=== PATIENT | female | born 1970 | race Hispanic/Latino ===

== ENCOUNTER → 2020-04-05 | Day surgery (SDC) | payer OTHER ==
--- NOTE | 2020-04-04 12:55 | Pre Op History & Physical ---
CHIEF COMPLAINT: Right thyroid dominant nodule. HISTORY OF PRESENT ILLNESS: This 49-year-old female was noted to have a right thyroid dominant nodules. She has been followed for over a year and a half. The dominant nodule on the right side was noted on ultrasound, it was increasing in size. The patient also has smaller nodules on the left side which has decreased in size. The size of the dominant nodule was over 4.4 cm. The patient denies any dysphagia, odynophagia, or shortness of breath. She has no radiation to the head and neck area. The patient has no family history of thyroid problem. The patient after discussion of treatment options, has declined to have needle aspiration of the nodule in lieu of having the right thyroid nodule removed. REVIEW OF SYSTEMS: System review showed no recent cardiovascular, respiratory, or GI problem. PAST MEDICAL HISTORY: The patient has a history of hypertension. PAST SURGICAL HISTORY: She has previous hysterectomy. ALLERGIES: SHE HAS NO KNOWN ALLERGY TO MEDICATION. MEDICATIONS: She is on . SOCIAL HISTORY: Nonsmoker and a social drinker. FAMILY HISTORY: Noncontributory. PHYSICAL EXAMINATION: VITAL SIGNS: The patient's vital signs were within normal limits. She was seen with her . HEENT: Ear exam showed normal tympanic membrane bilaterally. Nasal exam showed deviated nasal septum on the left side about 20%. Oropharynx and oral cavity showed 2+ tonsils bilaterally with no exudate or debris. NECK: Showed no lymph node palpable. Right thyroid fullness was noted. CHEST: Showed good air entry bilaterally. CARDIOVASCULAR: Showed S1 and S2. No murmur noted. ASSESSMENT AND PLAN: Ms. Cloe has right thyroid dominant nodule within the multinodular goiter. The suggested treatment is right thyroidectomy, possible total thyroidectomy and other necessary procedure. The complication of procedure includes, but not limited to bleeding, infection, hypothyroidism, hyperthyroidism, hypocalcemia, hypercalcemia, voice change, recurrent laryngeal nerve injury, trouble swallowing, wound breakdown, poor cosmetic result, voice change, recurrent laryngeal nerve injury, trouble swallowing, dysphagia, perforation of the esophagus, pneumomediastinum, mediastinitis, persistent recurrence of the problem. Alternatives will be continue observation, needle aspiration of the area and thyroid suppression therapy. The patient and her have elected to undergo the surgical procedure. There have been given the pros and cons of the procedure during this with potential exposure to COVID. They have elected to undergo surgical procedure. MD LISSETTE Fair/GIOVANNY /[id number]
[~2020-04-05] MED LIST: ACETAMINOPHEN/CODEINE 300MG - 30MG TAB ONE; DEXAMETHASONE SOD PHOS INJ 4 MG/ML VIAL ONE; EPHEDRINE SULFATE INJ 50 MG/ML VIAL ONE; FENTANYL CITRATE/PF 100MCG/2 ML INJ ONE; GLYCOPYRROLATE INJ 0.2 MG/ML VIAL ONE; HYDROMORPHONE 1MG/1ML INJ ONE; LIDOCAINE 1% W/EPINEPHRINE 20 ML VIAL ONE; LIDOCAINE HCL 2% LOCAL INJ 5 ML SDV VIAL INJ ONE; LOSARTAN POTAS100 MG PO; MIDAZOLAM HCL 2 MG/2 ML VIAL ONE; NEOSTIGMINE 1 MG/ML 10ML VIAL ONE; ONDANSETRON HCL INJ 2MG/ML 2ML 2 MG/ML VIAL ONE; PREMARIN0.3 MG PO; PROPOFOL IV EMULSION 10 MG/ML 20 ML VIAL ONE; ROCURONIUM BROMIDE 10 MG/ML 5ML VIAL IV ONE; SCOPOLAMINE 1.5 MG PATCH ONE
--- NOTE | 2020-04-05 07:20 | NUR ---
SPIRITUAL CARE - Pre-Surgery Assessment: Pt in bed. Pt's at bedside. Pt reported supportive attention from family and friends. Intervention: I provided pastoral presence, hospitality, sympathetic listening, and prayer. I acquainted pt with availability of cp bleacher operator while hospitalized. Outcome: Pt expressed appreciation for visit. No need for follow up indicated at this time. JORGE Kirklain Spiritual Care Department O: [phone] Pager: [phone] ([phone] calling from)
[2020-04-05 11:45] VITALS: BP 124/72
--- NOTE | 2020-04-05 12:40 | Operative Report ---
DATE OF PROCEDURE: 04/05/2020 SURGEON: Julio César Sage MD CHIEF COMPLAINT: Right thyroid dominant nodule. POSTOPERATIVE DIAGNOSIS: Right thyroid dominant nodule. OPERATIVE PROCEDURE: Right thyroidectomy with appropriate closure. ANESTHESIA: Anesthesiology group INDICATIONS: This 49-year-old female was noted to have a multinodular goiter in 2018. She does have a dominant nodule on the right side. This has been increasing in size on repeated followup. The patient has no radiation to the head and neck area. She has no dysphagia, odynophagia, or hoarseness. The patient has no family history of thyroid problem. The patient declined needle aspiration. It was decided that the right thyroidectomy, possible total thyroidectomy and other necessary procedure will be beneficial for her. DESCRIPTION OF PROCEDURE: The patient was taken to the operating room, put under general anesthesia, endotracheally intubated. The neck was prepped and draped in a sterile fashion. Incision was marked out about two fingerbreadths from the sternal notch. Size of the incision was about 3 cm. The area was injected with 1% Xylocaine with 1:100,000 epinephrine for hemostasis. The dissection was carried down the subplatysmal plane. The superior and inferior flap were elevated. The strap muscle was identified and this was . The strap muscles were retracted laterally on the right side. The superior pole of the thyroid was identified and this was dissected from the surrounding soft tissue using the Harmonic scalpel. The superior parathyroid gland was identified and not disturbed. The thyroid gland was delivered. The thyroid isthmus was transected using the Harmonic scalpel. The inferior pole of the thyroid was dissected from the surrounding soft tissue using the Harmonic scalpel. The inferior parathyroid gland was identified and not disturbed. Recurrent laryngeal nerve was identified and this was left intact. The thyroid gland was delivered after it was dissected from the Piedra's ligament. The thyroid gland was examined with frozen section. The frozen section report as no obvious malignancy. Closure of the area was undertaken. The area was irrigated with copious amount of normal saline. Any bleeding area was controlled using the bipolar cautery. The strap muscle was advanced in the midline and closed with one mattress suture of 3-0 Vicryl suture. The platysmal flap that was elevated was advanced in the midline and closed on itself using 3-0 Vicryl suture in the interrupted fashion. The skin incision was closed using 4-0 Monocryl suture in the interrupted fashion. The pressure dressing was applied. The patient tolerated the above procedure well with estimated blood loss less than 5-10 mL. She was given 20 mg of Decadron intraoperatively. The patient was able to be transferred to recovery room in a stable condition. MD LISSETTE Fair/MODEliud /[id number]
== END | disposition home or self-care (01) ==
LOC: OR 06:28
PROVIDERS: ATTEND Otolaryngology Otolaryngology/Facial Plastic Surgery
DX: E06.3 Autoimmune thyroiditis (principal); E04.1 Nontoxic single thyroid nodule; I10 Essential (primary) hypertension; Z01.810 Encounter for preprocedural cardiovascular examination; Z01.812 Encounter for preprocedural laboratory examination; Z11.59 Encounter for screening for other viral diseases
CPT/HCPCS: 60220; 87635; 88307; 88333; 93005; J1100; J1170; J2001; J2250; J2405; J2704; J2710; J3010